=== PATIENT | male | born 1950 | race Caucasian/White ===

== ENCOUNTER 2018-10-15 10:30 | Outpatient (RCR) | payer MEDICARE, OTHER ==
[~2018-10-15 10:30] MED LIST: ANTIVERT 12.512.5 MG PO; ASPIRIN 32325 MG/TA1 PO; ASPIRIN E.C. 8181 MG PO; FERROUS SULFATE65 MG PO; LOTRIMIN CREAM15 GM TP; NIACIN500 MG PO; OMEGA-3 FISH1200 MG PO; ZOCOR 10MG10 MG PO
== END 2018-10-15 12:27 | disposition home or self-care (01) ==
LOC: WSPT 10:30
DX: M47.26 Other spondylosis with radiculopathy, lumbar region (principal)

== ENCOUNTER → 2018-12-07 | Outpatient (CLI) | payer MEDICARE, OTHER | LOC: MHCPAIN 10:19 | DX: G89.29 Other chronic pain (principal); M47.817 Spondylosis without myelopathy or radiculopathy, lumbosacral region; M54.16 Radiculopathy, lumbar region; M53.3 Sacrococcygeal disorders, not elsewhere classified | CPT/HCPCS: G0463 ==

== ENCOUNTER 2020-12-01 15:18 | Outpatient (RCR) | payer MEDICARE, OTHER ==
[~2020-12-01 15:18] MED LIST changes: +BRILINTA90 MG PO; +COZAAR 50MG50 MG/TAB PO; +LIPITOR 80MG80 MG PO; +MOBIC 7.5MG7.5 MG PO; +NITRO-DUR0.4 MG/PAT TD; +NITROSTAT0.4 MG/TAB SL; +NORVASC 10MG10 MG PO
== END 2020-12-04 06:34 | disposition home or self-care (01) ==
LOC: COL.CR 15:18
DX: Z48.812 Encounter for surgical aftercare following surgery on the circulatory system (principal); Z95.5 Presence of coronary angioplasty implant and graft

== ENCOUNTER 2022-09-16 11:38 | Outpatient (RCR) | payer MEDICARE, OTHER | END 2022-09-17 | disposition home or self-care (01) | LOC: COL.CR | DX: Z48.812 Encounter for surgical aftercare following surgery on the circulatory system (principal); Z95.2 Presence of prosthetic heart valve ==

== ENCOUNTER → 2022-10-18 | Outpatient (RCR) | payer MEDICARE, OTHER | END | disposition home or self-care (01) | LOC: COL.CR | DX: Z48.812 Encounter for surgical aftercare following surgery on the circulatory system (principal); Z95.1 Presence of aortocoronary bypass graft ==

== ENCOUNTER 2022-11-13 15:30 | Outpatient (RCR) | payer MEDICARE, OTHER | END 2022-11-17 | disposition home or self-care (01) | LOC: COL.CR | DX: Z48.812 Encounter for surgical aftercare following surgery on the circulatory system (principal); Z95.1 Presence of aortocoronary bypass graft ==